=== PATIENT | male | born 1970 ===

== ENCOUNTER 2022-03-06 21:00 | Inpatient (IN) | payer MEDICAID, OTHER ==
[2022-03-06] MEDS ORDERED: HALOPERIDOL LACTATE 5 MG/ML 1 ML VIAL IM PRN (22:00)
[2022-03-06] MEDS ORDERED: MAG HYDROX/AL HYDROX/SIMETH 30 ML CUP PO PRN (22:00)
[2022-03-06] MEDS ORDERED: ACETAMINOPHEN TAB 325 MG TAB PO PRN (22:00)
[2022-03-06] MEDS ORDERED: MAGNESIUM HYDROXIDE 2,400 MG/10 ML CUP PO PRN (22:00)
[2022-03-06] MEDS ORDERED: LORazepam 2 MG/ML INJ IM PRN (22:02)
[2022-03-06] MEDS ORDERED: haloperidoL 5 MG TAB PO PRN (22:03)
[2022-03-07] MEDS: MULTIVITAMINS, THERA 1 EACH TAB PO SCH (14:35)
[2022-03-07] MEDS: FOLIC ACID 1 MG TAB PO SCH (14:35)
[2022-03-07] MEDS: NICOTINE 14MG/24HR PATCH TRANSDERM SCH (14:35)
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
[2022-03-07 22:44] LABS: Chol/HDL Ratio 4.35 Ratio; LDL Cholesterol,Calculated 98.9 mg/dL (0.0-131.0)
--- NOTE | 2022-03-08 00:07 | P.CONS ---
History of Present Illness - Reason for Consult Consult date: 03/07/22 - History of Present Illness The patient is a 52-year-old male who had initially presented to [facility] with complaints of depression and suicidal ideation. The patient was transferred to the mental health unit at [facility] where he was seen and evaluated. Patient reports that he has had a tough life with multiple stressors in that he is currently followed up and attempted to kill himself. At time of interview, he reports a chronic lower back pain for which she previously was taking baclofen and Flexeril. Reports daily alcohol use of 3-4 24 ounce beers as well as smoking half pack of cigarettes daily with recreational marijuana use. Denied experiencing chest discomfort, shortness of breath, fever, chills, cough, nausea, vomiting, abdominal pain, diarrhea. Review of systems: Pertinent positives and negatives as discussed in HPI, a complete review of systems was performed and all other systems are negative. Physical examination: General: non toxic, no distress, appears at stated age, overweight Derm: no unusual rashes/lesions, no unusual ecchymoses, warm, dry Head: atraumatic, normocephalic, symmetric Eyes: EOMI, no lid lag, anicteric sclera ENT: Nose and ears atraumatic, no thrush, no pharyngeal erythema Neck: trachea midline, supple Mouth: no lip lesion, mucus membranes moist Cardiovascular: S1S2 reg, no murmur, no edema Lungs: CTA bilateral, no rhonchi, no rales , no accessory muscle use Abdominal: soft, nontender to palpation, no guarding Ext: no gross muscle atrophy, no contractures, Neuro: No gross focal neuro deficits noted Psych: Alert, oriented, appropriate affect Assessment/plan Alcohol, tobacco, marijuana abuse -Strongly advised on importance of cessation Depression with suicidal ideation -As per psychiatry Thank you for allowing us to participate in the care of this patient. We will follow peripherally. Do not hesitate to contact us with questions. Someone can be reached from the [facility] hospitalist group at all hours of the day at [phone]. Past Medical History History of Any Multi-Drug Resistant Organisms: None Reported Past Psychological History: Depression Smoking Status: Current every day smoker Past Alcohol Use History: Abuse, Daily Additional Past Alcohol Use History / Comment(s): Drinks 3 25 0z daily and 1/2 pint 2 x a week Past Drug Use History: Marijuana Additional Drug Use History / Comment(s): daily - Past Family History Father Family Medical History: COPD Medications and Allergies Home Medications Medication Instructions Recorded Confirmed Type QUEtiapine [SEROquel] 400 mg PO HS 03/07/22 03/07/22 History Allergies Allergy/AdvReac Type Severity Reaction Status Date / Time No Known Allergies Allergy Verified 03/07/22 13:46 Physical Exam Vitals: Vital Signs Temp Pulse Resp BP Pulse Ox 03/07/22 11:40 98.1 F 73 16 150/82 97 Intake and Output 03/07/22 03/07/22 03/08/22 14:59 22:59 06:59 Other: Weight 76.005 kg Results Labs: Abnormal Lab Results - Last 24 Hours (Table) 03/07/22 03/07/22 Range/Units 14:51 14:51 Hemoglobin A1c 8.0 H (0.0-6.0) % Triglycerides 264.00 H (0.00-149.00) mg/dL VLDL Cholesterol, Calc 52.80 H (5.00-40.00) mg/dL
[2022-03-08] MEDS: MELATONIN 5 MG TABLET PO PRN ×2 (00:14→20:50)
[2022-03-08] MEDS: LORazepam 1 MG TAB PO PRN ×3 (00:14→20:50)
[2022-03-08] MEDS: NICOTINE 14MG/24HR PATCH TRANSDERM SCH (09:22)
[2022-03-08] MEDS: MULTIVITAMINS, THERA 1 EACH TAB PO SCH (09:22)
[2022-03-08] MEDS: FOLIC ACID 1 MG TAB PO SCH (09:22)
--- NOTE | 2022-03-08 20:20 | P.PN ---
Subjective Progress Note Date: 03/08/22 Principal diagnosis: Proress note He was seen again for his mood symptoms : sad facil expression with blunted affect . congruent affect. He seemed to be less hopeless and less preoccupied with his SI. He was willling to engage with community support and to talk to unit clinical social worker. Rx Options were discussed fully with him. He may have tried on various options : seroquel 300 mg po qhs , cymbalta and prozac, However, I prefer to go in a graduall fashion in view o fhis previous history of impulsivity and repeated suicidal attempts . He was agreeable to be restarted and SSRI cymbalta or remeron would be added by Mar 09, 2022. O: less mercer an ddowncast, No SI evident, No psychotic symptoms. He participated in various social activities. A: PTSD, Major Deperssive Disorder active moderate severity P: He would be started on Seroquel 300 mg po qhs, add Cymbalta 30 mg po bid by mar 09, 2022. He would be further assessed by the team . Referral to clinical social worker to community residental program. Objective - Vital Signs Vital signs: Vital Signs Temp 97.8 F 03/08/22 00:16 Pulse 77 03/08/22 00:16 Resp 16 03/08/22 00:16 BP 141/86 03/08/22 00:16 Pulse Ox 98 03/08/22 00:16 FiO2 - Labs Labs: Abnormal Lab Results - Last 24 Hours (Table) 03/07/22 03/07/22 Range/Units 14:51 14:51 Hemoglobin A1c 8.0 H (0.0-6.0) % Triglycerides 264.00 H (0.00-149.00) mg/dL VLDL Cholesterol, Calc 52.80 H (5.00-40.00) mg/dL
[2022-03-08] MEDS ORDERED: DULoxetine HCL 20 MG CAPSULE.DR PO SCH (21:00)
[2022-03-08] MEDS ORDERED: QUEtiapine 100 MG TAB PO SCH (21:00)
[2022-03-09] MEDS: LORazepam 1 MG TAB PO PRN (02:56)
[2022-03-09] MEDS: DULoxetine HCL 30 MG CAPSULE.DR PO SCH ×2 (10:32→21:14)
[2022-03-09] MEDS: FOLIC ACID 1 MG TAB PO SCH (10:32)
[2022-03-09] MEDS: MULTIVITAMINS, THERA 1 EACH TAB PO SCH (10:32)
[2022-03-09] MEDS: NICOTINE 14MG/24HR PATCH TRANSDERM SCH (10:32)
--- NOTE | 2022-03-09 13:58 | P.PN ---
Progress Note - Text Progress Note Date: 03/09/22 Interval History: Patient was seen wandering the hallways and was directable and agreeable to georgina parrish with press writer in the office. Patient states that he is going to some groups. He had a constricted affect and appeared to be depressed. He states that he has been dealing with depression for a "long time" and states that "other people thought I attempted suicide by overdosing but I didn't". He claims that he is still having troubles with sleep and wanted to have his Seroquel increased. He spoke about other controlled medications. He appears to have fairly poor insight and judgment. He claims that he does have fleeting thoughts of suicide, no current plan or intent. He also claims that he does hear voices telling him to harm himself. At this time patient denies any homical ideations, intent or plan. Patient denies any visual hallucinations and denies any paranoia or delusions. Patient denies any side effects from the medications and has been compliant with meds. Mental Status Exam: General Appearance: Patient appears to have long hair, be stated age is alert, directable, and attempts to be cooperative. Marginal hygiene and grooming. Behavior: Patient is calmly seated without any agitated behavior. Increase Speech: Patient's speech is fluent and nonpressured. Monotone Mood/Affect: Mood is depressed, affect is congruent and constricted. Suicidality/Homicidality: Patient denies having any homicidal ideation intent or plan. Admits to suicidal thoughts, no intent or plan. Perceptions: Patient denies any visual hallucinations and admits to auditory hallucinations. Though content/process: There is no evidence of any delusional thought content and thought process is linear and goal-directed. Focused on medications. Memory and concentration: AOX3, grossly intact for the purposes of this session Judgment and insight: Poor, Improving mildly Assessment Schizoaffective disorder, depressed PTSD alcohol dependence severe homelessness nicotine dependence Plan: -Patient continues to meet criteria for inpatient psychiatric admission for symptom stabilization and safety. Patient has not signed adult voluntary form and was placed in patient's chart. -Medications: increase seroquel to 400 mg daily at bedtime for mood stabilization/psychosis/insomnia, Cymbalta 30 mg twice a day for anxiety/mood/pain, melatonin when necessary, prazosin 1 mg daily at bedtime for nightmares. -When necessary Ativan and Haldol for agitation/aggression. -NRT - nicotine patch -SW on board for discharge planning. Encouraged the patient to participate in milieu. Currently awaiting deferral with energy attorney and court date.
[2022-03-09] MEDS ORDERED: PRAZOSIN 1 MG CAP PO SCH (21:00)
[2022-03-09] MEDS: QUEtiapine 400 MG TAB PO SCH (21:14)
[2022-03-10] MEDS: FOLIC ACID 1 MG TAB PO SCH (11:23)
[2022-03-10] MEDS: DULoxetine HCL 30 MG CAPSULE.DR PO SCH (11:23)
[2022-03-10] MEDS: MULTIVITAMINS, THERA 1 EACH TAB PO SCH (11:24)
[2022-03-10] MEDS: NICOTINE 14MG/24HR PATCH TRANSDERM SCH (11:24)
--- NOTE | 2022-03-10 13:06 | P.PN ---
Progress Note - Text Progress Note Date: 03/10/22 Interval History: Patient was seen wandering the hallways and was directable and agreeable to sp shivani with speech writer in the office. Patient was also noticed to be socializing with others on the unit. Patient continues to be focused on his meds and his symptoms. HE states that he has been throuhg a lot in his life, several stressors. continues to endorse depression and anxiety. He states that he does not have an incom, we spoke about residential options. He does not want to go to rehab at this time. He states that he did not sleep well last night, continues to have nightmares. He states that he is going to groups and attempting to participate. He does hear voices telling him to harm himself and was fairly vague about this. At this time patient denies any homical ideations, intent or plan. Patient denies any visual hallucinations. Patient denies any side effects from the medications and has been compliant with meds. Mental Status Exam: General Appearance: Patient appears to have long hair, be stated age is alert, directable, and attempts to be cooperative. Marginal hygiene and grooming. Behavior: Patient is calmly seated without any agitated behavior. attempts to cooperate Speech: Patient's speech is fluent and nonpressured. Monotone Mood/Affect: Mood is depressed and anxious, affect is congruent and constricted. Suicidality/Homicidality: Patient denies having any homicidal ideation intent or plan. Admits to suicidal thoughts, no intent or plan, mild improving. Perceptions: Patient denies any visual hallucinations and admits to auditory hallucinations Though content/process: There is no evidence of any delusional thought content and thought process is linear and goal-directed. Focused on medications and his symptoms. Memory and concentration: AOX3, grossly intact for the purposes of this session Judgment and insight: Poor, Improving mildly Assessment: Schizoaffective disorder, depressed PTSD alcohol dependence severe homelessness nicotine dependence Plan: -Patient continues to meet criteria for inpatient psychiatric admission for symptom stabilization and safety. Patient has not signed adult voluntary form and was placed in patient's chart. -Medications: increase seroquel 400 mg daily at bedtime + 50 mg daily for mood stabilization/psychosis/insomnia, increase Cymbalta 30 mg daily + 60 mg QHS for anxiety/mood/pain, melatonin when necessary, increase prazosin 2 mg daily at bedtime for nightmares. -When necessary Ativan and Haldol for agitation/aggression. -NRT - nicotine patch -SW on board for discharge planning. Encouraged the patient to participate in milieu. Currently awaiting deferral with real estate attorney and court date. likely discharge in 1-2 days if patient is improving. likely residential as patient is refusing rehab.
[2022-03-10] MEDS: QUEtiapine 50 MG TAB PO SCH (14:53)
[2022-03-10] MEDS: QUEtiapine 400 MG TAB PO SCH (20:38)
[2022-03-10] MEDS: DULoxetine HCL 60 MG CAPSULE.DR PO SCH (20:38)
[2022-03-10] MEDS: PRAZOSIN 1 MG CAP PO SCH (20:38)
[2022-03-11] MEDS: FOLIC ACID 1 MG TAB PO SCH (08:42)
[2022-03-11] MEDS: MULTIVITAMINS, THERA 1 EACH TAB PO SCH (08:42)
[2022-03-11] MEDS: NICOTINE 14MG/24HR PATCH TRANSDERM SCH (08:42)
[2022-03-11] MEDS: DULoxetine HCL 30 MG CAPSULE.DR PO SCH (08:42)
[2022-03-11] MEDS: QUEtiapine 50 MG TAB PO SCH (08:43)
--- NOTE | 2022-03-11 11:03 | P.PN ---
Progress Note - Text Progress Note Date: 03/11/22 Interval History: Patient was seen lying in his bed today and was directable and agreeable to georgina parrish with web content writer in the office. Patient claims that he is doing a bit better today with regard to his mood and anxiety. He states that he wants to eventually go back to [facility] however does not live at the senior care. He wants to get connected with [facility]. He states that he is trying to go to some groups however not all of them. He claims that he has been socializing with others on the unit at this time. He claims that he has had several stressors in his life and has been suicidal different times in his life however and to push through. continues to endorse depression and anxiety however this is improving. He claims that the voices have improved significantly. At this time patient denies any homical ideations, intent or plan. Patient denies any visual hallucinations. Patient denies any side effects from the medications and has been compliant with meds. Mental Status Exam: General Appearance: Patient appears to have long hair, be stated age is alert, directable, and attempts to be cooperative. Marginal hygiene and grooming. Behavior: Patient is calmly seated without any agitated behavior. attempts to cooperate Speech: Patient's speech is fluent and nonpressured. Monotone, concrete Mood/Affect: Mood is depressed and anxious, improving mildly, affect is congruent and constricted. Suicidality/Homicidality: Patient denies having any homicidal ideation intent or plan. Admits to suicidal thoughts, no intent or plan, mild improving. Perceptions: Patient denies any visual hallucinations and admits to auditory hallucinations Though content/process: There is no evidence of any delusional thought content and thought process is linear and goal-directed. Focused on medications and his symptoms. Memory and concentration: AOX3, grossly intact for the purposes of this session Judgment and insight: Improving mildly Assessment: Schizoaffective disorder, depressed PTSD alcohol dependence severe homelessness nicotine dependence Plan: -Patient continues to meet criteria for inpatient psychiatric admission for symptom stabilization and safety. Patient has not signed adult voluntary form and was placed in patient's chart. -Medications: seroquel 400 mg daily at bedtime + 50 mg daily for mood stabilization/psychosis/insomnia, Cymbalta 30 mg daily + 60 mg QHS for anxiety/mood/pain, melatonin when necessary, prazosin 2 mg daily at bedtime for nightmares -When necessary Ativan and Haldol for agitation/aggression. -NRT - nicotine patch -SW on board for discharge planning. Encouraged the patient to participate in milieu. Currently awaiting deferral with sports attorney and court date. likely discharge in 1-2 days if patient is improving. likely senior care as patient is refusing rehab.
[2022-03-11] MEDS: PRAZOSIN 1 MG CAP PO SCH (21:39)
[2022-03-11] MEDS: DULoxetine HCL 60 MG CAPSULE.DR PO SCH (21:40)
[2022-03-11] MEDS: QUEtiapine 400 MG TAB PO SCH (21:40)
[2022-03-12] MEDS: NICOTINE 14MG/24HR PATCH TRANSDERM SCH (07:38)
[2022-03-12] MEDS: MULTIVITAMINS, THERA 1 EACH TAB PO SCH (07:39)
[2022-03-12] MEDS: DULoxetine HCL 30 MG CAPSULE.DR PO SCH (07:39)
[2022-03-12] MEDS: FOLIC ACID 1 MG TAB PO SCH (07:39)
[2022-03-12] MEDS: QUEtiapine 50 MG TAB PO SCH (07:39)
[2022-03-12] MEDS ORDERED: DULoxetine HCL 30 MG CAPSULE.DR PO ONE (11:58)
--- NOTE | 2022-03-12 12:06 | P.PN ---
Progress Note - Text Progress Note Date: 03/12/22 Interval History: Patient was seen lying in his bed today and was approached by repairer typewriter however leatha moore was mildly irritable this morning and tired and wanted to speak to repairer typewriter later on. Customer Service Associate sought patient walking in the hallway over an hour later and was agreeable to speak to repairer typewriter in the office. Patient claims that he is doing "all right" today and continues to be concrete and constricted in his affect. He states that he has been taking the medications and claims that he slept bebeto r last night. He continues to state that he does have on and off nightmares at times. He claims that he wants to keep the Seroquel the way it is at this current dose. Customer Service Associate spoke about increasing his Cymbalta which he was okay with the help his mood and anxiety. He wanted to speak about discharge planning and states that he wants to speak to a elementary school social worker about getting connected with [facility] and [facility]. He claims that he would take the referral to go to the [facility] [place] tomorrow. He claims that he did not go to groups a day however did go to some groups yesterday. Claims to have a fair appetite at this time. He claims that the voices have improved significantly and not hearing them today. At this time patient denies any homical ideations, intent or plan. Patient denies any visual hallucinations. Patient denies any side effects from the medications and has been compliant with meds. Mental Status Exam: General Appearance: Patient appears to have long hair, be stated age is alert, directable, and attempts to be cooperative. Marginal hygiene and grooming. Behavior: Patient is calmly seated without any agitated behavior. attempts to cooperate Speech: Patient's speech is fluent and nonpressured. concrete Mood/Affect: Mood is iimproving mildly, affect is congruent and constricted. Suicidality/Homicidality: Patient denies having any homicidal ideation intent or plan. Admits to suicidal thoughts which are improving, no intent or plan Perceptions: Patient denies any visual hallucinations and denies any auditory hallucinations Though content/process: There is no evidence of any delusional thought content and thought process is linear and goal-directed. Focused on medications and his symptoms. Memory and concentration: AOX3, grossly intact for the purposes of this session Judgment and insight: Improving mildly Assessment: Schizoaffective disorder, depressed PTSD alcohol dependence severe homelessness nicotine dependence Plan: -Patient continues to meet criteria for inpatient psychiatric admission for symptom stabilization and safety. Patient has not signed adult voluntary form and was placed in patient's chart. -Medications: seroquel 400 mg daily at bedtime + 50 mg daily for mood stabilization/psychosis/insomnia, increase Cymbalta 60 mg daily + 60 mg QHS for anxiety/mood/pain, change melatonin to 6 mg qhs for sleep, prazosin 2 mg daily at bedtime for nightmares -When necessary Ativan and Haldol for agitation/aggression. -NRT - nicotine patch -SW on board for discharge planning. Encouraged the patient to participate in milieu. Currently awaiting deferral with design studio consultant and court date. likely discharge tomorrow, patient wants to return to [facility] and will be referred to [facility], will give bus tickets. patient is refusing rehab.
[2022-03-12] MEDS ORDERED: MELATONIN 3 MG TABLET PO SCH (21:00)
[2022-03-12] MEDS: DULoxetine HCL 60 MG CAPSULE.DR PO SCH (21:40)
[2022-03-12] MEDS: PRAZOSIN 1 MG CAP PO SCH (21:40)
[2022-03-12] MEDS: QUEtiapine 400 MG TAB PO SCH (21:41)
[2022-03-13] MEDS: MULTIVITAMINS, THERA 1 EACH TAB PO SCH (08:46)
[2022-03-13] MEDS: NICOTINE 14MG/24HR PATCH TRANSDERM SCH (08:46)
[2022-03-13] MEDS: FOLIC ACID 1 MG TAB PO SCH (08:47)
[2022-03-13] MEDS: QUEtiapine 50 MG TAB PO SCH (08:47)
[2022-03-13] MEDS ORDERED: DULoxetine HCL 60 MG CAPSULE.DR PO SCH (09:00)
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
[2022-03-13] MEDS: LORazepam 1 MG TAB PO PRN (11:56)
[2022-03-13 12:09] VITALS: BP 112/58; PULSE 94; RESP 18; TEMP 97.7
== END 2022-03-13 13:29 | disposition home or self-care (01) | DRG 885 ==
LOC: 3MHU 03-07 11:40
PROVIDERS: ADMIT Psychiatry & Neurology Psychiatry; ATTEND Psychiatry & Neurology Psychiatry
DX: F25.1 Schizoaffective disorder, depressive type (principal); R45.851 Suicidal ideations; F10.20 Alcohol dependence, uncomplicated; F12.10 Cannabis abuse, uncomplicated; F17.200 Nicotine dependence, unspecified, uncomplicated; F43.10 Post-traumatic stress disorder, unspecified; G47.00 Insomnia, unspecified; Z59.00 Homelessness unspecified; Z60.8 Other problems related to social environment; Z79.899 Other long term (current) drug therapy; Z91.410 Personal history of adult physical and sexual abuse
CPT/HCPCS: 80061; 83036; 84443